=== PATIENT | male | born 1975 | race Caucasian/White ===

== ENCOUNTER → 2020-10-29 | Outpatient (CLI) | payer OTHER ==
--- NOTE | 2020-10-29 21:32 | REPVR ---
PROCEDURE INFORMATION: Exam: MR Cervical Spine Without Contrast Exam date and time: 10/29/2020 7:17 PM Age: 45 years old Clinical indication: Pain; Cervicalgia TECHNIQUE: Imaging protocol: Multiplanar magnetic resonance images of the cervical spine without contrast. COMPARISON: No relevant prior studies available. FINDINGS: Mild nonspecific reversal. Vertebral body height and AP alignment is preserved. Negative for discitis/osteomyelitis. No abnormal cord signal or cord expansion. No epidural fluid collection. C2-C3: No central or foraminal. Stenosis. C3-C4: No central or foraminal stenosis. C4-C5: No central or foraminal stenosis. C5-C6: No central or foraminal stenosis. C6-C7: No central or foraminal stenosis. C7-T1: No central or foraminal stenosis. IMPRESSION: 1. No acute abnormality. 2. Central canal is widely patent throughout. Electronically signed by: Kirill Springer On 10/29/2020 21:32:38 PM
== END ==
LOC: M RAD 18:32
PROVIDERS: ATTEND Orthopaedic Surgery
DX: M54.2 Cervicalgia (principal)

== ENCOUNTER 2021-05-18 09:48 | Emergency (ER) | payer OTHER ==
[~2021-05-18] VITALS: Ht 188 cm; Wt 96.6 kg
[2021-05-18] MEDS ORDERED: MEDR4PAK PO (13:03)
[2021-05-18 13:25] VITALS: BP 170/96
== END 2021-05-18 13:27 | disposition home or self-care (01) ==
LOC: M ED 09:48
DX: M51.37 Other intervertebral disc degeneration, lumbosacral region (principal); M54.42 Lumbago with sciatica, left side; F17.200 Nicotine dependence, unspecified, uncomplicated; Z88.8 Allergy status to other drugs, medicaments and biological substances

== ENCOUNTER 2021-12-02 15:36 | Emergency (ER) | payer OTHER ==
[~2021-12-02] VITALS: Ht 190.5 cm; Wt 96.6 kg
[2021-12-02 15:36] VITALS: BP 167/92
[~2021-12-02 15:36] MED LIST: MEDR4PAK PO
[2021-12-02] MEDS ORDERED: diphenhydrAMINE 50MG/ML VIAL (J1200) IV ONE (17:45)
[2021-12-02] MEDS ORDERED: METOCLOPRAMIDE INJ 10MG/2ML VIAL (J2765 PER 1) IV ONE (17:45)
[2021-12-02] MEDS ORDERED: NS 1,000 ML IV ONE (17:45)
[2021-12-02] MEDS ORDERED: KETOROLAC 30 MG/ML 1ML VIAL IV ONE (17:45)
[2021-12-02 18:11] LABS: BASO # 0.1 10^3/uL (0.0-0.2); BASO % 0.8 % (0.0-1.0); EOS # 0.1 10^3/uL (0.0-0.5); EOS % 1.7 % (0.0-3.0); HEMATOCRIT 43.9 % (42.0-52.0); HEMOGLOBIN 14.8 g/dl (13.5-17.5); LYMPH # 2.5 10^3/uL (1.5-5.0); LYMPH % 30.1 % (24.0-44.0); MEAN CORPUSCULAR HGB CONC 33.7 g/dl (32.0-36.5); MEAN CORPUSCULAR VOLUME 91.8 fl (80.0-96.0); MONO # 0.7 10^3/uL (0.0-0.8); MONO % 8.3 % (2.0-8.0); NEUTROPHILS # 4.9 10^3/uL (1.5-8.5); NEUTROPHILS % 58.7 % (36.0-66.0); PLATELET COUNT, AUTOMATED 360 10^3/uL (150-450); RED BLOOD COUNT 4.78 10^6/uL (4.30-6.10); WHITE BLOOD COUNT 8.4 10^3/uL (4.0-10.0)
[2021-12-02 18:33] LABS: ERYTHROCYTE SEDIMENTATION RATE 4 mm/hr (0-15)
[2021-12-02 18:46] LABS: BLOOD UREA NITROGEN 18 MG/DL (7-18); CALCIUM LEVEL 9.3 MG/DL (8.5-10.1); CARBON DIOXIDE LEVEL 31 MEQ/L (21-32); CHLORIDE LEVEL 103 MEQ/L (98-107); CREATININE FOR GFR 1.03 MG/DL (0.70-1.30); FREE T4 1.05 NG/DL (0.76-1.46); GLOMERULAR FILTRATION RATE > 60.0 (>60); GLUCOSE, FASTING 88 MG/DL (70-100); POTASSIUM SERUM 4.2 MEQ/L (3.5-5.1); SODIUM LEVEL 138 MEQ/L (136-145)
[2021-12-02] MEDS ORDERED: AMIT25TA17 PO (19:28)
[2021-12-02] MEDS ORDERED: PRED20TA PO (19:29)
[2021-12-02] MEDS ORDERED: AMIT10TA7 PO (19:34)
== END 2021-12-02 19:36 | disposition home or self-care (01) ==
LOC: M ED 15:36
DX: G43.909 Migraine, unspecified, not intractable, without status migrainosus (principal); M54.2 Cervicalgia; Z85.828 Personal history of other malignant neoplasm of skin; I10 Essential (primary) hypertension; Z87.891 Personal history of nicotine dependence; Z88.8 Allergy status to other drugs, medicaments and biological substances; Z79.899 Other long term (current) drug therapy
CPT/HCPCS: 80048; 83605; 84439; 84443; 85025; 85652; 86140; 87040; 96361; 96374; 96375; 99283; J1200; J1885; J2765